=== PATIENT | male | born 1980 | race Asian ===

== ENCOUNTER 2017-06-24 12:39 | Emergency (ER) | payer OTHER | END 2017-06-24 13:41 | disposition home or self-care (01) | LOC: ER 12:39 | DX: H72.91 Unspecified perforation of tympanic membrane, right ear (principal); J06.9 Acute upper respiratory infection, unspecified; H66.92 Otitis media, unspecified, left ear | CPT/HCPCS: 99283 ==

== ENCOUNTER → 2018-10-15 | Outpatient (CLI) | payer OTHER ==
[2017-06-24 13:00] VITALS: BP 151/89
[~2018-10-15] MED LIST: AMOX1TAB61 PO; IBUP-1060 PO
[2018-10-15 14:29] LABS: BASO % 1 % (0-3); EOS # 0.2 x10^3/uL (0.0-0.7); EOS % 4 % (0-3); HEMATOCRIT 44.2 % (39.0-53.0); HEMOGLOBIN 15.2 g/dL (13.0-17.5); LYMPH # 2.2 x10^3/uL (1.0-4.8); LYMPH % 33 % (24-48); MEAN CORPUSCULAR HEMOGLOBIN 31 pg (25-35); MEAN CORPUSCULAR HGB CONC 34 g/dL (31-37); MEAN CORPUSCULAR VOLUME 90 fL (79-100); MONO # 0.4 x10^3/uL (0.0-1.1); MONO % 7 % (0-9); NEUT # 3.8 x10^3uL (1.8-7.7); NEUT % 57 % (31-73); PLATELET COUNT 237 x10^3/uL (140-400); RED BLOOD COUNT 4.93 x10^6/uL (4.30-5.70); RED CELL DISTRIBUTION WIDTH 13.6 % (11.5-14.5); WHITE BLOOD COUNT 6.6 x10^3/uL (4.0-11.0)
[2018-10-15 14:51] LABS: BARBITURATES NEG (NEG); BENZODIAZEPINES NEG (NEG); CANNABINOIDS NEG (NEG); COCAINE NEG (NEG); METHADONE NEG (NEG); OPIATES NEG (NEG); PHENCYCLIDINE NEG (NEG)
[2018-10-15 14:52] LABS: AMPHETAMINE/METHAMPHETAMINE NEG (NEG)
[2018-10-15 15:00] LABS: ALBUMIN 4.1 g/dL (3.4-5.0); ALBUMIN/GLOBULIN RATIO 1.1 (1.0-1.7); CALCIUM 9.4 mg/dL (8.5-10.1); CREATININE 1.3 mg/dL (0.7-1.3); GFR 62.8; POTASSIUM 3.7 mmol/L (3.5-5.1); TOTAL BILIRUBIN 0.5 mg/dL (0.2-1.0); TOTAL PROTEIN 7.8 g/dL (6.4-8.2)
== END | disposition home or self-care (01) ==
LOC: LAB 13:56
PROVIDERS: ATTEND Psychiatry & Neurology Neurology
DX: R51 Headache (principal)
CPT/HCPCS: 36415; 80053; 80307; 85025; 85651

== ENCOUNTER → 2018-11-10 | Outpatient (CLI) | payer OTHER ==
[2017-06-24 13:00] VITALS: BP 151/89
[~2018-11-10] MED LIST changes: +GADOTERATE 7.5 MMOL/15ML VIAL. IVP ONE
--- NOTE | 2018-11-11 09:48 | RAD ---
MRI Brain with and without contrast History: Chronic headaches Technique: Multiplanar, multi sequential pre and postcontrast MR imaging was performed of the brain. Comparison: None Findings: There is some motion degradation. There is no evidence of recent infarct or cytotoxic edema. The ventricles, sulci, and cisterns are within normal limits in size and configuration. There is no significant midline shift, intraaxial mass effect, or focal abnormal extra-axial fluid collection. There is no significant signal abnormality including hemosiderin deposition of the brain parenchyma. There is no nodular parenchymal or leptomeningeal enhancement. There is preservation of the major intracranial flow-voids at the skull base. The cerebellar tonsils are normal in location. There is no significant abnormality of the pineal gland. Pituitary gland size is within normal limits. There is patchy [id number] left and mild right ethmoid air cell mucosal thickening, negligible left sphenoid sinus mucosal thickening. Frontal sinus is not pneumatized. The mastoid air cells are aerated. There is preserved marrow signal of the clivus. Impression: 1. There is no significant intracranial abnormality. There is some patchy ethmoid air cell mucosal thickening greater on the left. Electronically signed by: Apollo Bah MD (11/10/2018 3:38 PM) [id number]
== END | disposition home or self-care (01) ==
LOC: MRI 14:10
PROVIDERS: ATTEND Psychiatry & Neurology Neurology
DX: R51 Headache (principal)
CPT/HCPCS: 70553; A9575